=== PATIENT | female | born 1990 | race Two or more races ===

== ENCOUNTER 2019-12-07 10:13 | Emergency (ER) | payer OTHER ==
[~2019-12-07] VITALS: Ht 154.9 cm; Wt 50.3 kg
--- NOTE | 2019-12-07 10:30 | NUR ---
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 on room air, breathing evenly and unlabored. connected to the monitor and pulse ox. kept comfortable, will continue to monitor accordingly.
[2019-12-07 10:51] VITALS: BP 100/65
--- NOTE | 2019-12-07 10:52 | NUR ---
patient discharge in custody accompanied by [employer] in no distress.
== END 2019-12-07 10:52 ==
LOC: EDBD 10:16 → ER 10:16
DX: F15.10 Other stimulant abuse, uncomplicated (principal); Z59.0 Homelessness